=== PATIENT | female | born 1990 | race Caucasian/White ===

== ENCOUNTER 2017-01-09 09:03 | Emergency (ER) | payer OTHER ==
[~2017-01-09] VITALS: Ht 160 cm; Wt 79.3 kg
[~2017-01-09 09:03] MED LIST: ASPIR 8181 M1 PO; KEFLEX500 MG PO; MOTRIN800 MG PO; PERCOCET 5/31 TABLET PO; PRENATAL TABLE1 EAC3 PO
[2017-01-09 10:06] LABS: HEMATOCRIT 38.2 % (36.0-46.0); MCH 29.7 PG (29.0-34.0); MCHC 34.3 G/DL (30.0-36.0); MCV 86.6 FL (83-99); MEAN PLAT.VOLUME 10.4 uM^3 (9.5-12.4); PLATELET COUNT 243 K/uL (156-360); RBC DIS.WIDTH-CV 13.8 % (11.8-14.6); RBC DIS.WIDTH-SD 42.8 % (39-53); RED BLOOD COUNT 4.41 M/uL (3.80-5.20); WHITE BLOOD COUNT 6.5 K/uL (4.1-10.2)
[2017-01-09 10:16] LABS: CHLORIDE 110 mEq/L (99-109); POTASSIUM 3.9 mEq/L (3.7-5.4); SODIUM 141 mEq/L (136-147)
[2017-01-09 10:17] LABS: GLUCOSE 89 mg/dL (70-99)
[2017-01-09 10:19] LABS: ANION GAP 9 MEQ/L (2-14)
[2017-01-09 10:21] LABS: GFR ESTIMATE (CALCULATED) > 59 mL/min/
[2017-01-09 10:22] LABS: UREA NITROGEN (BUN) 9 mg/dL (9-23)
[2017-01-09] MEDS ORDERED: NAPROSYN500 MG PO (11:10)
[2017-01-09 11:22] LABS: QUANTITATIVE HCG < 4.0 MIU/ML
[2017-01-09 11:27] VITALS: BP 137/84
== END 2017-01-09 11:28 | disposition home or self-care (01) ==
LOC: EME 09:03
DX: M94.0 Chondrocostal junction syndrome [Tietze] (principal); R05 Cough; R00.0 Tachycardia, unspecified; F17.200 Nicotine dependence, unspecified, uncomplicated; Z79.82 Long term (current) use of aspirin
CPT/HCPCS: 71020; 80048; 84702; 85027; 93005; 99281; 99283

== ENCOUNTER 2018-02-06 20:19 | Emergency (ER) | payer OTHER ==
[~2018-02-06] VITALS: Ht 162.6 cm; Wt 75.6 kg
[~2018-02-06 20:19] MED LIST changes: +NAPROSYN500 MG PO
[2018-02-06 20:42] LABS: APPEARANCE CLEAR ((CLEAR)); BILIRUBIN NEGATIVE; BLOOD LARGE; COLOR YELLOW ((YELLOW)); GLUCOSE (STRIP) NEGATIVE; KETONES NEGATIVE; LEUKOCYTES NEGATIVE; NITRITE NEGATIVE; PROTEIN (STRIP) 30; SPECIFIC GRAVITY 1.028 (1.000-1.030); UROBILINOGEN 0.2 MG/DL (0.2-1.0)
[2018-02-06 20:58] LABS: BACTERIA RARE /HPF; EPITHELIAL CELLS 1+ /HPF; HYALINE CASTS 0-5 /LPF; MUCUS 4+ /LPF; RED BLOOD CELLS 15-20 /HPF (0-5); UCUL ADDED? NO; WHITE BLOOD CELLS 0-5 /HPF (0-5)
[2018-02-06 21:24] LABS: HEMATOCRIT 36.2 % (36.0-46.0); HEMOGLOBIN 12.3 G/DL (11.9-15.5); MCH 29.9 PG (29.0-34.0); MCV 87.9 FL (83-99); PLATELET COUNT 287 K/uL (156-360); RBC DIS.WIDTH-CV 13.8 % (11.8-14.6); RBC DIS.WIDTH-SD 44.2 % (39-53); RED BLOOD COUNT 4.12 M/uL (3.80-5.20); WHITE BLOOD COUNT 7.7 K/uL (4.1-10.2)
[2018-02-06 21:34] LABS: ALBUMIN 3.9 g/dL (3.2-4.8)
[2018-02-06 21:35] LABS: CHLORIDE 110 mEq/L (99-109); SODIUM 143 mEq/L (136-147)
[2018-02-06 21:37] LABS: GLUCOSE 94 mg/dL (70-99); TOTAL PROTEIN 7.3 g/dL (6.4-8.3)
[2018-02-06 21:39] LABS: TOTAL BILIRUBIN 0.1 mg/dL (0.0-1.0)
[2018-02-06 21:40] LABS: ALKALINE PHOSPHATASE 45 IU/L (3-129)
[2018-02-06 21:41] LABS: CREATININE 0.7 mg/dL (0.6-1.3); GFR ESTIMATE (CALCULATED) > 59 mL/min/
[2018-02-06 21:42] LABS: AST (GOT) 14 IU/L (2-34); UREA NITROGEN (BUN) 12 mg/dL (9-23)
[2018-02-06 21:44] LABS: ALT (GPT) 12 IU/L (3-49)
[2018-02-06 21:49] LABS: QUANTITATIVE HCG < 4.0 MIU/ML
[2018-02-06] MEDS ORDERED: NAPROSYN500 MG PO (23:59)
[2018-02-07 00:26] VITALS: BP 110/75
== END 2018-02-07 00:28 | disposition home or self-care (01) ==
LOC: EME 20:19
DX: R10.31 Right lower quadrant pain (principal); Z79.82 Long term (current) use of aspirin; Z88.0 Allergy status to penicillin; Z88.2 Allergy status to sulfonamides; F17.200 Nicotine dependence, unspecified, uncomplicated
CPT/HCPCS: 74177; 80053; 81003; 84702; 85027; 99281; 99285; J7030